=== PATIENT | male | born 1980 | race Caucasian/White ===

== ENCOUNTER 2018-04-13 16:21 | Emergency (ER) | payer OTHER, SELFPAY ==
[2018-04-13 16:25] VITALS: BP 144/86; PULSE 86; RESP 15; TEMP 36.8; O2SAT 97; BMI 30.1
--- NOTE | 2018-04-13 16:32 | DI.RAD.S_ITS ---
PROCEDURE: XR CHEST 2V INDICATIONS: trauma with pain left lower chest TECHNIQUE: 2 views of the chest were acquired. [place] [facility] [place], 15:06. FINDINGS: Surgical changes and devices: None. Lungs and pleura: No pleural effusions or pneumothorax. Lungs are clear. Mediastinum: Mediastinal contours are normal. Heart size is normal. Bones and chest wall: No suspicious bony abnormalities. Soft tissues appear unremarkable. IMPRESSION: No active cardiopulmonary disease. Dictated by: Taylor Shipman M.D. on 04/13/2018 at 16:56 Approved by: Taylor Shipman M.D. on 04/13/2018 at 16:57
--- NOTE | 2018-04-13 16:46 | PC.NURSE ---
States CP from fall and injury.
--- NOTE | 2018-04-13 17:00 | ED_ITS ---
HPI - Chest Pain General Chief Complaint: Chest Pain Stated Complaint: Fell yesterday Time Seen by Provider: 04/13/18 16:34 Source: patient Mode of arrival: ambulatory Limitations: no limitations History of Present Illness HPI narrative: 37-year-old nonsmoking male presents with a chief complaint of and anterior chest injury after falling at work yesterday. He was using 2 hands on a pipe wrench to loosen a valve when it let go in his body fell forward onto a 1 in pipe, striking it and is epigastrium. Since the fall the patient complains he has widespread left-sided chest wall pain with deep breaths and motion of his left arm. He has had no cough, hemoptysis nor nausea or vomiting. He does state that he is afraid he has indentation in his upper belly that was not there prior to his fall MD complaint: chest pain Onset (ago): day(s) Duration: intermittent Onset: during exertion Pain location: left chest Severity: moderate Severity scale (1-10): 4 Quality: aching Pain radiation: none Relieving factors: nothing Exacerbating factors: inspiration and movement Context: trauma/injury Treatments prior to arrival chest pain: none Related Data Previous Rx's Medication Instructions Recorded methocarbamol [Robaxin] 500 mg PO QID #14 tab 04/13/18 Allergies Allergy/AdvReac Type Severity Reaction Status Date / Time Sulfa (Sulfonamide Allergy Unknown Verified 04/13/18 16:25 Antibiotics) [SULFA (SULFONAMIDE ANTIBIOTICS)] Review of Systems Review of Systems All systems reviewed & are unremarkable except as noted in HPI and below Constitutional Denies chills, Denies fever(s), Denies lethargy and Denies weakness Eyes Denies change in vision, Denies eye discharge, Denies irritation and Denies loss of vision ENT Ears, Nose, Mouth, and Throat: Denies change in voice, Denies neck pain and Denies sore throat Cardiovascular Reports chest pain, Denies irregular heart rhythm, Denies lightheadedness, Denies palpitations, Denies dyspnea, Denies dyspnea on exertion and Denies orthopnea Respiratory Denies cough, Denies dyspnea, Denies dyspnea on exertion and Denies wheezing Gastrointestinal Gastrointestinal: Denies abdominal pain, Denies change in bowel habits, Denies diarrhea, Denies nausea and Denies vomiting Genitourinary Denies hematuria, Denies flank pain, Denies urinary incontinence and Denies urinary urgency Musculoskeletal Denies neck pain Integumentary/Breasts Denies pruritus, Denies erythema, Denies rash and Denies wounds Neurologic Denies confusion, Denies loss of vision and Denies weakness Psychiatric Denies anxiety, Denies confusion, Denies depression, Denies homicidal ideation and Denies suicidal ideation Endocrine Denies palpitations Hematologic/Lymphatic Denies easy bruising Allergic/Immunologic Denies wheezing REPLACED BY [facility] Social History Smoking Status: Never smoker Exam Narrative Exam Narrative: GENERAL: This is a well-nourished, well-developed patient, in mild distress. HEAD: Atraumatic. Normocephalic. No temporal or scalp tenderness. EYES: Pupils equal round and reactive. Extraocular motions intact. No scleral icterus. No injection or drainage. ENT: Nose without bleeding, purulent drainage or septal hematoma. Throat without erythema, tonsillar hypertrophy or exudate. Uvula midline. Airway patent. NECK: Trachea midline. No JVD or lymphadenopathy. Supple, nontender, no meningeal signs. CARDIOVASCULAR: Regular rate and rhythm without murmurs, gallops, or rubs. Chest pain with palpation of left lateral chest. No obvious external manifestation, no bruises, swelling or abrasions. He is a bit tender over his xiphoid. RESPIRATORY: Clear to auscultation. Breath sounds equal bilaterally. No wheezes , rales, or rhonchi. GASTROINTESTINAL: Abdomen soft, non-tender, nondistended. No hepato-splenomegaly , or palpable masses. No guarding. EXTREMITIES: No clubbing, cyanosis, or edema. No joint tenderness, effusion, or edema noted. BACK: Nontender without deformity or crepitance. No flank tenderness. NEURO: AOx3. SKIN: No rash or erythema. Initial Vital Signs Initial Vital Signs: Vital Signs Temperature 98.3 F 04/13/18 16:25 Pulse Rate 86 04/13/18 16:25 Respiratory Rate 15 04/13/18 16:25 Blood Pressure 144/86 H 04/13/18 16:25 Pulse Oximetry 97 04/13/18 16:25 Procedures Orthopedic Splinting/Casting Injury #1: Additional Comments: Left simple shoulder sling placed to minimize range of motion which seems to help the chest wall strain Course Orders Ordered: ED Orders 04/13/18 16:32 Chest [XR chest 2V] Stat Vital Signs - 8 hr 04/13/18 16:25 Temperature 98.3 F Pulse Rate 86 Respiratory Rate 15 Blood Pressure 144/86 H Pulse Oximetry 97 MDM - Chest Pain Differential Diagnosis Likely fracture of rib, pneumothorax and costochondritis Medical Records Data Attestation: I reviewed the patient's medical records. Lab Data Attestation: I reviewed the patient's lab results. Imaging Data Chest x-ray: Radiologist's impression: [address] [address] XRay Report Signed Patient: Socrates Willis MMR#: [id number] : 1980Acct:[id number] Age/Sex: 37 / MDate of Service: 04/13/18 Loc: ED Accession Number: [id number] Procedure: XR chest 2V Ordering Provider: Edison Abraham D.O. PROCEDURE: XR CHEST 2V INDICATIONS: trauma with pain left lower chest TECHNIQUE: 2 views of the chest were acquired. COMPARISON: [facility], , CHEST 2VW, 06/02/2007, 15:06. FINDINGS: Surgical changes and devices: None. Lungs and pleura: No pleural effusions or pneumothorax. Lungs are clear. Mediastinum: Mediastinal contours are normal. Heart size is normal. Bones and chest wall: No suspicious bony abnormalities. Soft tissues appear unremarkable. IMPRESSION: No active cardiopulmonary disease. Dictated by: Taylor Shipman M.D. on 04/13/2018 at 16:56 Approved by: Taylor Shipman M.D. on 04/13/2018 at 16:57 [facility] Narrative Medical decision making narrative: Patient describes landing with his body weight on a narrow pipe with a 90 degree band creating a small surface area which would in most cases leave some type of abrasion, bruising or swelling which is not noted on the patient's exam. Chest x-ray shows no pneumothorax or rib fractures. His description of the injury raises suspicion muscle strain to the intercostals and other chest wall muscles on the left side of his chest. Discharge Plan Departure Patient Disposition: Home Clinical Impression: Chest wall injury, Chest wall muscle strain Discharge Date/Time: 04/13/18 18:17 Interventions: ED Discharge Assessment Last Done: 04/13/18 17:51 Instructions: DI for Atypical Chest Pain Activity Restrictions/Additional Instructions: *You have been diagnosed with [ chest wall strain ] *What to do: *Take medications as directed *Follow up with your primary care provider in 2-3 days, call for an appointment. Let them know you were seen in the Emergency Department and that we ask that you be seen in follow up *Return to ER if you should have any new, worsening or concerning symptoms Prescriptions: New methocarbamol [Robaxin] 500 mg tablet 500 mg PO QID Qty: 14 RF: 0
[2018-04-13 17:51] VITALS: BP 129/83; PULSE 90; RESP 16; O2SAT 97
== END 2018-04-13 18:17 | disposition home or self-care (01) ==
PROVIDERS: Emergency Provider Emergency Medicine
DX: S29.9XXA Unspecified injury of thorax, initial encounter (principal); S29.011A Strain of muscle and tendon of front wall of thorax, initial encounter; W01.198A Fall on same level from slipping, tripping and stumbling with subsequent striking against other object, initial encounter; Y99.0 Civilian activity done for income or pay
CPT/HCPCS: 71046; 99282; 99283

== ENCOUNTER 2019-09-16 11:38 | Emergency (ER) | payer OTHER, SELFPAY ==
[2019-09-16 11:49] VITALS: BP 137/89; PULSE 98; RESP 18; TEMP 36.9; O2SAT 97
--- NOTE | 2019-09-16 11:54 | ED_ITS ---
HPI - Animal Bite <[facility] - Last Filed: 09/16/19 14:02> General Chief Complaint: Animal Bite Stated Complaint: lt thumb/ bite Time Seen by Provider: 09/16/19 11:44 Source: patient and family Mode of arrival: Ambulatory Limitations: no limitations History of Present Illness HPI narrative: The patient is a 39-year-old male current smoker with history of multiple fractures who presents with a chief complaint of a dog bite to his right thumb. The bite was from his own dog which is fully vaccinated as he was trying to break up a fight between 2 of his dogs. The dog that bit him is a chihuahua mix. He states that he had a tetanus within the past 2 years he has not washed it out. He states that he has full range of motion with his thumb. The patient is right-hand dominant Related Data Previous Rx's Medication Instructions Recorded methocarbamol [Robaxin] 500 mg PO QID #14 tab 04/13/18 amoxicillin-pot clavulanate 1 tab PO BID #20 tab 09/16/19 [Augmentin] Allergies Allergy/AdvReac Type Severity Reaction Status Date / Time Sulfa (Sulfonamide Allergy Unknown Verified 04/13/18 16:25 Antibiotics) [SULFA (SULFONAMIDE ANTIBIOTICS)] Review of Systems [facility] Last Filed: 09/16/19 14:02> Review of Systems Narrative: GENERAL: Denies chills, fatigue, malaise, fever, sweats. HEENT: Denies sinus pain, ear pain, sore throat, difficulty swallowing, dizziness. RESPIRATORY: Denies dyspnea, cough, wheezing, hemoptysis, sputum. CARDIOVASCULAR: Denies chest pain, palpitations, orthopnea, edema, GASTROINTESTINAL: Denies nausea, vomiting, abdominal pain, diarrhea, constipation, melena. : Denies dysuria, frequency, incontinence, hematuria, urinary retention. MUSCULOSKELETAL: See HPI SKIN: See HPI NEUROLOGIC: Denies weakness, headache, numbness, change in speech, confusion, seizures, incoordination. PSYCHIATRIC: No concerning psychosocial issues. 12 point review of systems is negative except for those stated above Patient History <[facility] - Last Filed: 09/16/19 14:02> Social History (Reviewed 04/14/18 @ 07:47 by RYAN Howard Smoking Status: Current some day smoker Smoking Status: Current some day smoker alcohol intake frequency: 0-2 drinks per day Substance Use Type: does not use Exam <BEATRIZ Thompson - Last Filed: 09/16/19 14:02> Narrative Exam Narrative: GENERAL: This is a well-nourished, well-developed patient, in no acute distress HEAD: Atraumatic. Normocephalic. No temporal or scalp tenderness. EYES: Pupils equal round and reactive. Extraocular motions intact. No scleral icterus. No injection or drainage. ENT: Nose without bleeding, purulent drainage or septal hematoma. Throat without erythema, tonsillar hypertrophy or exudate. Uvula midline. Airway patent. NECK: Trachea midline. No JVD or lymphadenopathy. Supple, nontender, no meni ngeal signs. CARDIOVASCULAR: Regular rate and rhythm RESPIRATORY: No cough. No increased respiratory effort. No accessory muscle use EXTREMITIES: See skin exam. Patient has full range of motion noted to right thumb. Able to flex and extend against resistance. Capillary refill less than 2 seconds. BACK: Nontender without deformity or crepitance. No flank tenderness. NEURO: AOx3. SKIN: Puncture wound noted at webbing of thumb of right hand, through dermis no obvious muscle or tendon involvement. Deeper tissue visible upon moving finger. Opens up copiously with motion of 1st digit of right hand additional extending 1 cm partial-thickness laceration from puncture wound. Initial Vital Signs Initial Vital Signs: Vital Signs Temperature 98.4 F 09/16/19 11:49 Pulse Rate 98 H 09/16/19 11:49 Respiratory Rate 18 09/16/19 11:49 Blood Pressure 137/89 09/16/19 11:49 Pulse Oximetry 97 09/16/19 11:49 <Daisha Kearns DO - Last Filed: 09/16/19 16:02> Initial Vital Signs Initial Vital Signs: Vital Signs Temperature 98.4 F 09/16/19 11:49 Pulse Rate 98 H 09/16/19 11:49 Respiratory Rate 18 09/16/19 11:49 Blood Pressure 137/89 09/16/19 11:49 Pulse Oximetry 97 09/16/19 11:49 Procedures <BEATRIZ Thompson - Last Filed: 09/16/19 14:02> Laceration Repair Laceration 1: Site: hand Side (If applicable): left Size (cm): 0.5 Description: irregular Depth: simple, single layer Local Anesthetic: lidocaine 1% and with bicarb Amount of anesthesia used (mL): 2 Pre-repair: wound explored, irrigated extensively and deep structures intact Skin layer closed with: nylon Size (cm): 4-0 Number of sutures: 1 Technique: simple, interrupted Course <BEATRIZ Thompson - Last Filed: 09/16/19 14:02> Orders Ordered: Discontinued Medications Lidocaine/Sodium Bicarbonate (Buffered Lidocaine 10 Ml Syr) 10 ml INJ NOW ONE Stop: 09/16/19 12:32 Last Admin: 09/16/19 13:13 Dose: 10 ml Documented by: BTONER Vital Signs Vital signs: Vital Signs - 8 hr 09/16/19 11:49 09/16/19 13:24 Temperature 98.4 F Pulse Rate 98 H 87 Respiratory Rate 18 16 Blood Pressure 137/89 148/65 H Pulse Oximetry 97 97 <Daisha Kearns DO - Last Filed: 09/16/19 16:02> Orders Ordered: Discontinued Medications Lidocaine/Sodium Bicarbonate (Buffered Lidocaine 10 Ml Syr) 10 ml INJ NOW ONE Stop: 09/16/19 12:32 Last Admin: 09/16/19 13:13 Dose: 10 ml Documented by: BTONER Vital Signs Vital signs: Vital Signs - 8 hr 09/16/19 11:49 09/16/19 13:24 Temperature 98.4 F Pulse Rate 98 H 87 Respiratory Rate 18 16 Blood Pressure 137/89 148/65 H Pulse Oximetry 97 97 MDM - Animal Bite <BEATRIZ Thompson - Last Filed: 09/16/19 14:02> MDM Narrative Medical decision making narrative: The patient is a 39-year-old male who presents with a chief complaint of a dog bite to his right thumb. The dog is vaccinated, his tetanus is up-to-date. Given the depth of 1 of the puncture wounds, as well as location on the webbing of the thumb I did place 1 stitch. Placed patient on Augmentin. He is neurovascularly intact. I discussed at length keeping the wound clean and dry, following up with primary care provider, monitoring for signs and symptoms of infection. Patient has no questions or concerns upon discharge and states understanding of return precautions as well as folow up care. Discharge Plan Departure Patient Disposition: Home Clinical Impression: Dog bite Qualifiers: Encounter type: initial encounter Qualified Code(s): W54.0XXA - Bitten by dog, initial encounter Discharge Date/Time: 09/16/19 13:24 Instructions: DI for Animal Bites, DI for Dog Bite Activity Restrictions/Additional Instructions: Thank you for trusting us with your care today. I hope your wound heals well. I sent a prescription of Augmentin to [facility]. Please take this twice a day for 10 days. Please monitor for signs of infection including redness extending up the arm, purulence drainage or other signs of infection. Please keep your wound clean and dry. You can use bacitracin or an antibacterial ointment. Please do not submerge your wound dirty water such as dishwater pool water etcetera this can increase your chance of infection Please follow-up with primary care provider Your suture can be taken out approximately 1 week Please come back to the emergency department for any acute concerns Prescriptions: New amoxicillin-pot clavulanate [Augmentin] 875-125 mg tablet 1 tab PO BID Qty: 20 RF: 0 No Action methocarbamol [Robaxin] 500 mg tablet 500 mg PO QID Qty: 14 RF: 0 Referrals: Jeff Lutz MD [Primary Care Provider] -
[2019-09-16] MEDS: LIDO 1%/SOD BICARB 8.4% (10ML) 10 ML SYRINGE INJ (13:13)
[2019-09-16 13:24] VITALS: BP 148/65; PULSE 87; RESP 16; O2SAT 97
== END 2019-09-16 13:24 | disposition home or self-care (01) ==
PROVIDERS: Emergency Provider Nurse Practitioner Family; PCP Family Medicine
DX: S61.051A Open bite of right thumb without damage to nail, initial encounter (principal); W54.0XXA Bitten by dog, initial encounter
CPT/HCPCS: 12001; 99283

== ENCOUNTER → 2021-01-06 10:37 | Outpatient (CLI) | payer OTHER, SELFPAY ==
--- NOTE | 2021-01-06 | DI.US.S_ITS ---
PROCEDURE: US SCROTUM INDICATIONS: R TESTICULAR PAIN TECHNIQUE: Real-time scanning was performed of the scrotum and testicles, with image documentation. Color and pulse Doppler interrogation was performed of both testicles. COMPARISON: CT, KIDNEY/ URETER/BLADDER, 01/09/2016, 8:38. FINDINGS: Right: Testicle is normal in size at 4.5 x 2.4 x 3.3 cm, and homogenous in echotexture. Epididymis is normal in overall size and morphology. No hydrocele or varicoceles. Overlying scrotal skin is normal in thickness. Complex mass present within the right hemiscrotum measuring 3.5 x 1.2 x 1.6 cm and no significant internal blood flow seen. Left: Testicle is normal in size at 4.5 x 2.5 x 3.0 cm, and homogeneous in echotexture. Epididymis is normal in overall size and morphology. No hydrocele or varicoceles. Overlying scrotal skin is normal in thickness. Doppler: Color and pulse Doppler demonstrate normal and symmetric arterial flow in both testicles. IMPRESSION: 1. Normal appearance of the testicles bilaterally. 2. Complex right hemiscrotal mass which may represent an evolving hematoma status post recent S ectomy. Recommend clinical correlation and short-term follow-up ultrasound in 3-4 weeks. Dictated by: Fred DARBY Interpreted: Cooper Ortiz MD on 01/06/2021 at 13:21 Transcribed by: SHELLEY on 01/06/2021 at 13:23 Approved by: Cooper Ortiz M.D. on 01/06/2021 at 14:45
== END ==
PROVIDERS: PCP Family Medicine; Referring Provider Family Medicine; Visit Provider Family Medicine
DX: N50.811 Right testicular pain (principal); N50.9 Disorder of male genital organs, unspecified; Z98.52 Vasectomy status
CPT/HCPCS: 76870

== ENCOUNTER 2021-01-11 20:18 | Observation (INO) | payer OTHER, SELFPAY ==
[2021-01-11] VITALS (8 sets, daily range): BP systolic 146–169; BP diastolic 77–108; PULSE 86–119; RESP 12–33; TEMP 36.7; O2SAT 95–99
[2021-01-11 21:02] LABS: Add Manual Diff / Slide Review NO; Basophils Absolute Auto 200 /uL (0-100); Basophils Percent Auto 1.1 % (0-2); Eosinophils Absolute Auto 200 /uL (0-450); Eosinophils Percent Auto 1.7 % (2-4); Hematocrit 46.3 % (41-53); Hemoglobin 15.7 g/dL (13.5-17.5); Lymphocytes Absolute Auto 3400 /uL (1100-4500); Lymphocytes Percent Auto 24.2 % (25-40); Mean Corpuscular Hemoglobin 28.9 PG (26-34); Monocytes Absolute Auto 1000 /uL (0-900); Monocytes Percent Auto 7.3 % (3-14); Neutrophils Absolute Auto 9300 /uL (1500-7000); Neutrophils Percent Auto 65.7 % (50-75); Platelet Count 363 X10^3/uL (150-400); Red Blood Cell Count 5.45 X10^6/uL (4.5-5.9); Red Cell Distribution Width 12.3 % (11.6-14.8); White Blood Cell Count 14.1 X10^3/uL (4.5-11.0)
[2021-01-11] MEDS: SODIUM CHLORIDE 0.9% 1,000 ML 1000 ML IV (21:02)
[2021-01-11 21:10] LABS: Alanine Aminotransferase 21 IU/L (<50); Albumin 4.2 g/dL (3.5-5.0); Albumin Globulin Ratio 1.1 (1.0-2.8); Alkaline Phosphatase 135 U/L (38-126); Aspartate Aminotransferase 22 IU/L (17-59); BUN Creatinine Ratio 23.8 (6-22); Bilirubin Total 0.6 mg/dL (0.2-1.3); Blood Urea Nitrogen 10 mg/dL (9-20); Calcium 9.6 mg/dL (8.4-10.2); Carbon Dioxide 19 mmol/L (22-32); Chloride 107 mmol/L (98-107); Estimated Glomerular Filt Rate > 60.0 mL/min (>60); Globulin 3.9 g/dL (1.7-4.1); Glucose 196 mg/dL (70-100); HEMOLYSIS < 15 (0-50); Lipase 41 U/L (23-300); Potassium 3.7 mmol/L (3.4-5.1); Sodium 139 mmol/L (137-145); Total Protein 8.1 g/dL (6.3-8.2)
[2021-01-11 21:26] LABS: Procalcitonin 0.07 ng/mL (<0.5)
--- NOTE | 2021-01-11 21:27 | ED.MALEGU ---
HPI - Male Genitourinary <DO Chinmay Howard Last Filed: 01/13/21 03:15> General Chief complaint: Urogenital-Male Stated complaint: VASECTOMY LAST WEEK SWELLING Time Seen by Provider: 01/11/21 20:38 Source: patient Mode of arrival: Ambulatory Limitations: no limitations History of Present Illness HPI Narrative: 40-year-old male smoker presents with his in the chief complaint of pain and swelling in his right testicle over the past week or 2. He had a vasectomy in his primary care office on December 19 and started swelling about a week later. He started having some increasing pain and swelling and was started on cefuroxime on Tuesday. He presents today under the circumstances as mention. He has no fever or chills. He has had no chest pain or shortness of breath. He states he feels well and just complains of pain and swelling. He has no trouble with urinating or bowel movements. Related Data Previous Rx's Medication Instructions Recorded ciprofloxacin HCl 500 mg tablet 500 mg PO Q12H #20 tab 01/12/21 oxycodone 5 mg tablet 5 mg PO Q4H PRN #20 tab 01/12/21 Allergies Allergy/AdvReac Type Severity Reaction Status Date / Time Sulfa (Sulfonamide Allergy Unknown Unknown - Verified 01/12/21 12:24 Antibiotics) was in [SULFA (SULFONAMIDE [facility])] Review of Systems <DO Chinmay Howard Last Filed: 01/13/21 03:15> Review of Systems Narrative: GENERAL: Denies chills, fatigue, malaise, fever, sweats. HEENT: Denies sinus pain, ear pain, sore throat, difficulty swallowing, dizziness. RESPIRATORY: Denies dyspnea, cough, wheezing, hemoptysis, sputum. CARDIOVASCULAR: Denies chest pain, palpitations, orthopnea, edema, GASTROINTESTINAL: Denies nausea, vomiting, abdominal pain, diarrhea, constipation, melena. : See HPI MUSCULOSKELETAL: denies weakness, joint pain, or bony pain SKIN: Denies rash, skin lesions, or other NEUROLOGIC: Denies weakness, headache, numbness, change in speech, confusion, seizures, incoordination. PSYCHIATRIC: No concerning psychosocial issues. 12 point review of systems is negative except for those stated above Patient History <DO Chinmay Howard Last Filed: 01/13/21 03:15> Surgical History (Updated 01/12/21 @ 12:38 by Karen Grimes RN) H/O foot surgery (~2016) H/O vasectomy Social History household members: spouse and children Smoking Status: Current some day smoker alcohol intake: current Smoking Status: Current some day smoker alcohol intake frequency: 0-2 drinks per day Substance Use Type: does not use Exam <Edison Abraham DO - Last Filed: 01/13/21 03:15> Narrative Exam Narrative: GEN: AOx3 and in mild distress EYES: Pupils are equal, round, and reactive to light and accommodation. Extraoccular muscles are intact bilaterally. There is no subconjunctival hemorrhage or exudate. CHEST: Lungs are clear to auscultation bilaterally and free of wheezes, rales, or rhonchi. Heart rate is regular rhythm, there are no murmurs, clicks, rubs, or gallops. There is no chest wall tenderness. ABD: Abdomen is soft and nontender. There is no guarding or rebound. Bowel sounds are normal in all 4 quadrants. There is no mass or organomegaly. : Large firm, erythematous swelling of R testicle. No obvious fluctuance or induration EXT: Full painless ROM of all extremities with no loss of sensation or strength. SKIN: Warm, pink, and dry. No erythema or rash Initial Vital Signs Initial Vital Signs: Vital Signs Temperature 98.1 F 01/11/21 20:34 Pulse Rate 119 H 01/11/21 20:34 Respiratory Rate 24 01/11/21 20:34 Blood Pressure 169/108 H 01/11/21 20:34 Pulse Oximetry 99 01/11/21 20:34 <Daisha Kearns DO - Last Filed: 01/12/21 12:06> Initial Vital Signs Initial Vital Signs: Vital Signs Temperature 98.1 F 01/11/21 20:34 Pulse Rate 119 H 01/11/21 20:34 Respiratory Rate 24 01/11/21 20:34 Blood Pressure 169/108 H 01/11/21 20:34 Pulse Oximetry 99 01/11/21 20:34 Course <Edison Abraham DO - Last Filed: 01/13/21 03:15> Orders Ordered: Discontinued Medications Acetaminophen (Acetaminophen 325 Mg Tablet) 325 mg PO PACUNOW PRN PRN Reason: Pain, Mild (1-3) Last Admin: 01/12/21 16:44 Dose: 325 mg Documented by: SPARKLE Bupivacaine Liposome (Bupivacaine Liposome 266 Mg/20 Ml Vial) 266 mg INJ INTRA-OP ONE Stop: 01/12/21 12:16 Last Admin: 01/12/21 16:05 Dose: 266 mg Documented by: PA Sodium Chloride 1,000 ml/ (Gentamicin Sulfate 80 mg) 0 ml IRR NOW ONE Stop: 01/12/21 16:09 Last Admin: 01/12/21 16:08 Dose: 500 ml Documented by: PA Fentanyl (Fentanyl 100 Mcg/2 Ml Inj) 0 mcg IV Q5M PRN PRN Reason: Pain, Moderate (4-6) Hydromorphone HCl (Hydromorphone 0.5 Mg Inj) 0.5 mg IV NOW ONE Stop: 01/11/21 21:33 Last Admin: 01/11/21 21:44 Dose: 0.5 mg Documented by: RONAN Hydromorphone HCl (Hydromorphone 0.5 Mg Inj) 0.5 mg IV NOW ONE Stop: 01/11/21 22:33 Last Admin: 01/11/21 22:43 Dose: 0.5 mg Documented by: RONAN Hydromorphone HCl (Hydromorphone 0.5 Mg Inj) 0.25 mg IV NOW ONE Stop: 01/12/21 01:54 Last Admin: 01/12/21 02:10 Dose: 0.25 mg Documented by: ANGELLA Hydromorphone HCl (Hydromorphone 0.5 Mg Inj) 0.5 mg IV NOW ONE Stop: 01/12/21 08:17 Last Admin: 01/12/21 09:01 Dose: 0.5 mg Documented by: RACHAEL Hydromorphone HCl (Hydromorphone 0.5 Mg Inj) 0.5 mg IV Q4H PRN PRN Reason: Pain, Moderate (4-6) Sodium Chloride (Normal Saline 0.9%) 1,000 mls @ 1,000 mls/hr IV BOLUS ONE Stop: 01/11/21 21:37 Last Infusion: 01/11/21 22:20 Dose: 0 mls/hr Documented by: Admin: 01/11/21 21:02 Dose: 1,000 mls/hr Documented by: JULES Ceftriaxone Sodium 2,000 mg/ (Sodium Chloride) 100 mls @ 200 mls/hr IV NOW ONE Stop: 01/12/21 01:16 Last Infusion: 01/12/21 02:11 Dose: 0 mls/hr Documented by: Admin: 01/12/21 01:37 Dose: 200 mls/hr Documented by: ANGELLA Lactated Ringer's (Lactated Ringers) 1,000 mls @ 125 mls/hr IV CONT KOLE Last Infusion: 01/12/21 17:19 Dose: 0 mls/hr Documented by: Admin: 01/12/21 15:27 Dose: 42 mls/hr Documented by: Infusion: 01/12/21 15:26 Dose: 0 mls/hr Documented by: Admin: 01/12/21 12:34 Dose: 125 mls/hr Documented by: JACQUES Ampicillin Sodium/Sulbactam (Sodium 3 gm/ Sodium Chloride) 100 mls @ 100 mls/hr IV NOW ONE Stop: 01/12/21 12:16 Last Admin: 01/12/21 16:06 Dose: 100 mls/hr Documented by: SARI Gentamicin Sulfate 240 mg/ (Sodium Chloride) 106 mls @ 106 mls/hr IV NOW ONE Stop: 01/12/21 12:16 Last Infusion: 01/12/21 16:06 Dose: 0 mls/hr Documented by: Admin: 01/12/21 15:53 Dose: 106 mls/hr Documented by: SARI Lactated Ringer's (Lactated Ringers) 500 mls @ 25 mls/hr IV CONT KOLE Ketorolac Tromethamine (Ketorolac 30 Mg/Ml Vial) 15 mg IV NOW ONE Stop: 01/12/21 10:19 Last Admin: 01/12/21 10:23 Dose: 15 mg Documented by: RONAN Ondansetron HCl (Ondansetron 4 Mg/2 Ml Inj) 4 mg IV NOW ONE Stop: 01/11/21 21:33 Last Admin: 01/11/21 21:44 Dose: 4 mg Documented by: RONAN Ondansetron HCl (Ondansetron 4 Mg/2 Ml Inj) 4 mg IV NOW ONE Stop: 01/12/21 10:19 Last Admin: 01/12/21 10:24 Dose: 4 mg Documented by: RONAN Ondansetron HCl (Ondansetron 4 Mg/2 Ml Inj) 4 mg IV Q6HR PRN PRN Reason: Nausea And Vomiting Ondansetron HCl (Ondansetron 4 Mg/2 Ml Inj) 4 mg IV NOW PRN PRN Reason: Nausea And Vomiting Last Admin: 01/12/21 17:27 Dose: 4 mg Documented by: TIMMY Oxycodone HCl (Oxycodone Ir 5 Mg Tablet) 5 mg PO PACUNOW PRN PRN Reason: Mild or moderate pain Last Admin: 01/12/21 16:43 Dose: 5 mg Documented by: SPARKLE Consultations Consultation #1: Discussion with Dr. Horta (on-call for Dr. Lutz) to discuss admission with urologic consultation (they are not on-call until tomorrow morning) or keeping in the ED. he would prefer we keep the patient in the emergency department until they come on this morning at 8:00 a.m.. Vital Signs Vital signs: Vital Signs - 8 hr 01/12/21 04:30 01/12/21 05:00 01/12/21 05:30 Pulse Rate 92 H 92 H 94 H Respiratory Rate 12 12 11 L Blood Pressure 142/92 H 131/85 144/88 H Pulse Oximetry 96 96 96 01/12/21 06:00 01/12/21 06:30 01/12/21 07:00 Pulse Rate 96 H 94 H 98 H Respiratory Rate 13 12 13 Blood Pressure 144/88 H 148/92 H 144/91 H Pulse Oximetry 96 96 97 01/12/21 07:30 01/12/21 09:04 01/12/21 09:30 Pulse Rate 102 H 105 H 109 H Respiratory Rate 16 Blood Pressure 149/93 H Pulse Oximetry 96 97 95 01/12/21 10:00 01/12/21 10:11 Pulse Rate 113 H 113 H Respiratory Rate 16 Blood Pressure 143/90 H Pulse Oximetry 97 97 <Daisha Kearns DO - Last Filed: 01/12/21 12:06> Orders Ordered: Discontinued Medications Acetaminophen (Acetaminophen 325 Mg Tablet) 325 mg PO PACUNOW PRN PRN Reason: Pain, Mild (1-3) Last Admin: 01/12/21 16:44 Dose: 325 mg Documented by: SPARKLE Bupivacaine Liposome (Bupivacaine Liposome 266 Mg/20 Ml Vial) 266 mg INJ INTRA-OP ONE Stop: 01/12/21 12:16 Last Admin: 01/12/21 16:05 Dose: 266 mg Documented by: PA Sodium Chloride 1,000 ml/ (Gentamicin Sulfate 80 mg) 0 ml IRR NOW ONE Stop: 01/12/21 16:09 Last Admin: 01/12/21 16:08 Dose: 500 ml Documented by: PA Fentanyl (Fentanyl 100 Mcg/2 Ml Inj) 0 mcg IV Q5M PRN PRN Reason: Pain, Moderate (4-6) Hydromorphone HCl (Hydromorphone 0.5 Mg Inj) 0.5 mg IV NOW ONE Stop: 01/11/21 21:33 Last Admin: 01/11/21 21:44 Dose: 0.5 mg Documented by: RONAN Hydromorphone HCl (Hydromorphone 0.5 Mg Inj) 0.5 mg IV NOW ONE Stop: 01/11/21 22:33 Last Admin: 01/11/21 22:43 Dose: 0.5 mg Documented by: RONAN Hydromorphone HCl (Hydromorphone 0.5 Mg Inj) 0.25 mg IV NOW ONE Stop: 01/12/21 01:54 Last Admin: 01/12/21 02:10 Dose: 0.25 mg Documented by: ANGELLA Hydromorphone HCl (Hydromorphone 0.5 Mg Inj) 0.5 mg IV NOW ONE Stop: 01/12/21 08:17 Last Admin: 01/12/21 09:01 Dose: 0.5 mg Documented by: RACHAEL Hydromorphone HCl (Hydromorphone 0.5 Mg Inj) 0.5 mg IV Q4H PRN PRN Reason: Pain, Moderate (4-6) Sodium Chloride (Normal Saline 0.9%) 1,000 mls @ 1,000 mls/hr IV BOLUS ONE Stop: 01/11/21 21:37 Last Infusion: 01/11/21 22:20 Dose: 0 mls/hr Documented by: Admin: 01/11/21 21:02 Dose: 1,000 mls/hr Documented by: JULES Ceftriaxone Sodium 2,000 mg/ (Sodium Chloride) 100 mls @ 200 mls/hr IV NOW ONE Stop: 01/12/21 01:16 Last Infusion: 01/12/21 02:11 Dose: 0 mls/hr Documented by: Admin: 01/12/21 01:37 Dose: 200 mls/hr Documented by: ANGELLA Lactated Ringer's (Lactated Ringers) 1,000 mls @ 125 mls/hr IV CONT KOLE Last Infusion: 01/12/21 17:19 Dose: 0 mls/hr Documented by: Admin: 01/12/21 15:27 Dose: 42 mls/hr Documented by: Infusion: 01/12/21 15:26 Dose: 0 mls/hr Documented by: Admin: 01/12/21 12:34 Dose: 125 mls/hr Documented by: JACQUES Ampicillin Sodium/Sulbactam (Sodium 3 gm/ Sodium Chloride) 100 mls @ 100 mls/hr IV NOW ONE Stop: 01/12/21 12:16 Last Admin: 01/12/21 16:06 Dose: 100 mls/hr Documented by: SARI Gentamicin Sulfate 240 mg/ (Sodium Chloride) 106 mls @ 106 mls/hr IV NOW ONE Stop: 01/12/21 12:16 Last Infusion: 01/12/21 16:06 Dose: 0 mls/hr Documented by: Admin: 01/12/21 15:53 Dose: 106 mls/hr Documented by: SARI Lactated Ringer's (Lactated Ringers) 500 mls @ 25 mls/hr IV CONT KOLE Ketorolac Tromethamine (Ketorolac 30 Mg/Ml Vial) 15 mg IV NOW ONE Stop: 01/12/21 10:19 Last Admin: 01/12/21 10:23 Dose: 15 mg Documented by: RONAN Ondansetron HCl (Ondansetron 4 Mg/2 Ml Inj) 4 mg IV NOW ONE Stop: 01/11/21 21:33 Last Admin: 01/11/21 21:44 Dose: 4 mg Documented by: RONAN Ondansetron HCl (Ondansetron 4 Mg/2 Ml Inj) 4 mg IV NOW ONE Stop: 01/12/21 10:19 Last Admin: 01/12/21 10:24 Dose: 4 mg Documented by: RONAN Ondansetron HCl (Ondansetron 4 Mg/2 Ml Inj) 4 mg IV Q6HR PRN PRN Reason: Nausea And Vomiting Ondansetron HCl (Ondansetron 4 Mg/2 Ml Inj) 4 mg IV NOW PRN PRN Reason: Nausea And Vomiting Last Admin: 01/12/21 17:27 Dose: 4 mg Documented by: TIMMY Oxycodone HCl (Oxycodone Ir 5 Mg Tablet) 5 mg PO PACUNOW PRN PRN Reason: Mild or moderate pain Last Admin: 01/12/21 16:43 Dose: 5 mg Documented by: SPARKLE Consultations Consultation #2: Dr. Mann, saw patient here in the department. Plan for OR today. Exact time is unknown. Vital Signs Vital signs: Vital Signs - 8 hr 01/12/21 04:30 01/12/21 05:00 01/12/21 05:30 Pulse Rate 92 H 92 H 94 H Respiratory Rate 12 12 11 L Blood Pressure 142/92 H 131/85 144/88 H Pulse Oximetry 96 96 96 01/12/21 06:00 01/12/21 06:30 01/12/21 07:00 Pulse Rate 96 H 94 H 98 H Respiratory Rate 13 12 13 Blood Pressure 144/88 H 148/92 H 144/91 H Pulse Oximetry 96 96 97 01/12/21 07:30 01/12/21 09:04 01/12/21 09:30 Pulse Rate 102 H 105 H 109 H Respiratory Rate 16 Blood Pressure 149/93 H Pulse Oximetry 96 97 95 01/12/21 10:00 01/12/21 10:11 Pulse Rate 113 H 113 H Respiratory Rate 16 Blood Pressure 143/90 H Pulse Oximetry 97 97 MDM - Male Genitourinary <Edison Abraham DO - Last Filed: 01/13/21 03:15> Lab Data Result diagrams: 01/11/21 20:50 01/11/21 20:50 Labs: Lab Results 01/11/21 01/11/21 01/11/21 Range/Units 08:50 20:50 20:50 WBC 14.1 H (4.5-11.0) X10^3/uL RBC 5.45 (4.5-5.9) X10^6/uL Hgb 15.7 (13.5-17.5) g/dL Hct 46.3 (41-53) % MCV 85.0 (80-100) fL MCH 28.9 (26-34) PG MCHC 34.0 (30-36) % RDW 12.3 (11.6-14.8) % Plt Count 363 (150-400) X10^3/uL Neut % (Auto) 65.7 (50-75) % Lymph % (Auto) 24.2 L (25-40) % Morris % (Auto) 7.3 (3-14) % Eos % (Auto) 1.7 L (2-4) % Baso % (Auto) 1.1 (0-2) % Neut # (Auto) 9300 H (6949-0373) /uL Lymph # (Auto) 3400 (3658-2413) /uL Morris # (Auto) 1000 H (0-900) /uL Eos # (Auto) 200 (0-450) /uL Baso # (Auto) 200 H (0-100) /uL Sodium 139 (137-145) mmol/L Potassium 3.7 (3.4-5.1) mmol/L Chloride 107 (98-107) mmol/L Carbon Dioxide 19 L (22-32) mmol/L BUN 10 (9-20) mg/dL Creatinine 0.42 L (0.66-1.25) mg/dL Estimated GFR > 60.0 (>60) mL/min BUN/Creatinine Ratio 23.8 H (6-22) Glucose 196 H (70-100) mg/dL Lactate (0.7-2.1) mmol/L Calcium 9.6 (8.4-10.2) mg/dL Total Bilirubin 0.6 (0.2-1.3) mg/dL AST 22 (17-59) IU/L ALT 21 (<50) IU/L Alkaline Phosphatase 135 H (38-126) U/L Total Protein 8.1 (6.3-8.2) g/dL Albumin 4.2 (3.5-5.0) g/dL Globulin 3.9 (1.7-4.1) g/dL Albumin/Globulin Ratio 1.1 (1.0-2.8) Lipase 41 (23-300) U/L Procalcitonin 0.07 (<0.5) ng/mL Urine Color Urine Appearance Urine pH (4.5-8.0) Ur Specific [place] (1.000-1.035) Urine Protein (Negative) Urine Glucose (UA) (Negative) g/dL Urine Ketones (NEGATIVE) Urine Occult Blood (Negative) Urine Nitrate (Negative) Urine Bilirubin (NEGATIVE) Urine Urobilinogen (0.2) E.U./dL Ur Leukocyte Esterase (NEGATIVE) Urine RBC (0-5/HPF) Urine WBC (0-5/HPF) Urine Bacteria (None) Ur Culture Indicated? SARS-CoV-2 (PCR) Negative (Negative) 01/11/21 01/12/21 Range/Units 20:50 08:23 WBC (4.5-11.0) X10^3/uL RBC (4.5-5.9) X10^6/uL Hgb (13.5-17.5) g/dL Hct (41-53) % MCV (80-100) fL MCH (26-34) PG MCHC (30-36) % RDW (11.6-14.8) % Plt Count (150-400) X10^3/uL Neut % (Auto) (50-75) % Lymph % (Auto) (25-40) % Morris % (Auto) (3-14) % Eos % (Auto) (2-4) % Baso % (Auto) (0-2) % Neut # (Auto) (8583-8821) /uL Lymph # (Auto) (0454-7082) /uL Morris # (Auto) (0-900) /uL Eos # (Auto) (0-450) /uL Baso # (Auto) (0-100) /uL Sodium (137-145) mmol/L Potassium (3.4-5.1) mmol/L Chloride (98-107) mmol/L Carbon Dioxide (22-32) mmol/L BUN (9-20) mg/dL Creatinine (0.66-1.25) mg/dL Estimated GFR (>60) mL/min BUN/Creatinine Ratio (6-22) Glucose (70-100) mg/dL Lactate 1.0 (0.7-2.1) mmol/L Calcium (8.4-10.2) mg/dL Total Bilirubin (0.2-1.3) mg/dL AST (17-59) IU/L ALT (<50) IU/L Alkaline Phosphatase (38-126) U/L Total Protein (6.3-8.2) g/dL Albumin (3.5-5.0) g/dL Globulin (1.7-4.1) g/dL Albumin/Globulin Ratio (1.0-2.8) Lipase (23-300) U/L Procalcitonin (<0.5) ng/mL Urine Color Yellow Urine Appearance Clear Urine pH 5.5 (4.5-8.0) Ur Specific [place] 1.025 (1.000-1.035) Urine Protein 1+ H (Negative) Urine Glucose (UA) 1+ H (Negative) g/dL Urine Ketones 3+ H (NEGATIVE) Urine Occult Blood 1+ H (Negative) Urine Nitrate Negative (Negative) Urine Bilirubin Negative (NEGATIVE) Urine Urobilinogen 0.2 (0.2) E.U./dL Ur Leukocyte Esterase Negative (NEGATIVE) Urine RBC 5-10/hpf H (0-5/HPF) Urine WBC None seen (0-5/HPF) Urine Bacteria None seen (None) Ur Culture Indicated? Cult not indicated SARS-CoV-2 (PCR) (Negative) Imaging Data US Scrotum: Radiologist's Impression: [address] [id number] ReportSigned Patient: Socrates Willis [facility]#: [id number]: 1980Acct:[id number]/Sex: 40 / MDate of Service: 01/11/21Loc: EDAccession Number: [id number] Procedure: US scrotum Ordering Provider: Edison Abraham D.O. PROCEDURE: US SCROTUM INDICATIONS: PAIN, EDEMA POST VASECTOMY 12-19-20 TECHNIQUE: Real-time scanning was performed of the scrotum and testicles, with image documentation. Color and pulse Doppler interrogation was performed of both testicles. COMPARISON: [facility], US, US SCROTUM, 01/06/2021, 10:38. FINDINGS: Right: Testicle is normal in size at 4.2 x 2.9 x 3.2 cm, and homogenous in echotexture. Epididymis is normal in overall size and morphology. No hydrocele or varicoceles. There is thickening of the wall of the scrotum. There is an irregular shaped hypoechoic complex mass in the right superior hemiscrotum measuring 5.2 x 4.2 x 6.7 cm, with internal vascularity. On the previous study it measured 3.5 x 1.2 x 1.6 cm. It is suspicious for enlarging hematoma versus phlegmon versus abscess. Left: Testicle is normal in size at 4.6 x 2.2 x 3.0 cm, and homogeneous in echotexture. Epididymis is normal in overall size and morphology. No hydrocele or varicoceles. Overlying scrotal skin is normal in thickness. Doppler: Color and pulse Doppler demonstrate normal and symmetric arterial flow in both testicles. IMPRESSION: 1. Normal-sized testicles with no evidence of cystic ill or mass or testicular torsion. There is normal flow to both testicles. 2. Interval increase in the size of a complex mass of the right hemiscrotum, possibly representing increase in the size of a hematoma versus phlegmon versus abscess. Dictated by: Robbin Lin M.D. on 01/12/2021 at 0:40 Approved by: Robbin Lin M.D. on 01/12/2021 at 0:45 <Daisha Kearns, - Last Filed: 01/12/21 12:06> Lab Data Labs: Lab Results 01/11/21 01/11/21 01/11/21 Range/Units 08:50 20:50 20:50 WBC 14.1 H (4.5-11.0) X10^3/uL RBC 5.45 (4.5-5.9) X10^6/uL Hgb 15.7 (13.5-17.5) g/dL Hct 46.3 (41-53) % MCV 85.0 (80-100) fL MCH 28.9 (26-34) PG MCHC 34.0 (30-36) % RDW 12.3 (11.6-14.8) % Plt Count 363 (150-400) X10^3/uL Neut % (Auto) 65.7 (50-75) % Lymph % (Auto) 24.2 L (25-40) % Morris % (Auto) 7.3 (3-14) % Eos % (Auto) 1.7 L (2-4) % Baso % (Auto) 1.1 (0-2) % Neut # (Auto) 9300 H (5840-0973) /uL Lymph # (Auto) 3400 (7091-9776) /uL Morris # (Auto) 1000 H (0-900) /uL Eos # (Auto) 200 (0-450) /uL Baso # (Auto) 200 H (0-100) /uL Sodium 139 (137-145) mmol/L Potassium 3.7 (3.4-5.1) mmol/L Chloride 107 (98-107) mmol/L Carbon Dioxide 19 L (22-32) mmol/L BUN 10 (9-20) mg/dL Creatinine 0.42 L (0.66-1.25) mg/dL Estimated GFR > 60.0 (>60) mL/min BUN/Creatinine Ratio 23.8 H (6-22) Glucose 196 H (70-100) mg/dL Lactate (0.7-2.1) mmol/L Calcium 9.6 (8.4-10.2) mg/dL Total Bilirubin 0.6 (0.2-1.3) mg/dL AST 22 (17-59) IU/L ALT 21 (<50) IU/L Alkaline Phosphatase 135 H (38-126) U/L Total Protein 8.1 (6.3-8.2) g/dL Albumin 4.2 (3.5-5.0) g/dL Globulin 3.9 (1.7-4.1) g/dL Albumin/Globulin Ratio 1.1 (1.0-2.8) Lipase 41 (23-300) U/L Procalcitonin 0.07 (<0.5) ng/mL Urine Color Urine Appearance Urine pH (4.5-8.0) Ur Specific [place] (1.000-1.035) Urine Protein (Negative) Urine Glucose (UA) (Negative) g/dL Urine Ketones (NEGATIVE) Urine Occult Blood (Negative) Urine Nitrate (Negative) Urine Bilirubin (NEGATIVE) Urine Urobilinogen (0.2) E.U./dL Ur Leukocyte Esterase (NEGATIVE) Urine RBC (0-5/HPF) Urine WBC (0-5/HPF) Urine Bacteria (None) Ur Culture Indicated? SARS-CoV-2 (PCR) Negative (Negative) 01/11/21 01/12/21 Range/Units 20:50 08:23 WBC (4.5-11.0) X10^3/uL RBC (4.5-5.9) X10^6/uL Hgb (13.5-17.5) g/dL Hct (41-53) % MCV (80-100) fL MCH (26-34) PG MCHC (30-36) % RDW (11.6-14.8) % Plt Count (150-400) X10^3/uL Neut % (Auto) (50-75) % Lymph % (Auto) (25-40) % Morris % (Auto) (3-14) % Eos % (Auto) (2-4) % Baso % (Auto) (0-2) % Neut # (Auto) (7836-8656) /uL Lymph # (Auto) (5258-3603) /uL Morris # (Auto) (0-900) /uL Eos # (Auto) (0-450) /uL Baso # (Auto) (0-100) /uL Sodium (137-145) mmol/L Potassium (3.4-5.1) mmol/L Chloride (98-107) mmol/L Carbon Dioxide (22-32) mmol/L BUN (9-20) mg/dL Creatinine (0.66-1.25) mg/dL Estimated GFR (>60) mL/min BUN/Creatinine Ratio (6-22) Glucose (70-100) mg/dL Lactate 1.0 (0.7-2.1) mmol/L Calcium (8.4-10.2) mg/dL Total Bilirubin (0.2-1.3) mg/dL AST (17-59) IU/L ALT (<50) IU/L Alkaline Phosphatase (38-126) U/L Total Protein (6.3-8.2) g/dL Albumin (3.5-5.0) g/dL Globulin (1.7-4.1) g/dL Albumin/Globulin Ratio (1.0-2.8) Lipase (23-300) U/L Procalcitonin (<0.5) ng/mL Urine Color Yellow Urine Appearance Clear Urine pH 5.5 (4.5-8.0) Ur Specific [place] 1.025 (1.000-1.035) Urine Protein 1+ H (Negative) Urine Glucose (UA) 1+ H (Negative) g/dL Urine Ketones 3+ H (NEGATIVE) Urine Occult Blood 1+ H (Negative) Urine Nitrate Negative (Negative) Urine Bilirubin Negative (NEGATIVE) Urine Urobilinogen 0.2 (0.2) E.U./dL Ur Leukocyte Esterase Negative (NEGATIVE) Urine RBC 5-10/hpf H (0-5/HPF) Urine WBC None seen (0-5/HPF) Urine Bacteria None seen (None) Ur Culture Indicated? Cult not indicated SARS-CoV-2 (PCR) (Negative) MDM Narrative Medical decision making narrative: This is a 40-year-old male who comes with concern for infection in his right testicle. Patient had a vasectomy on 12/19/2020, patient had increasing swelling had an ultrasound outpatient with his primary care physician and was started on oral antibiotics after discussion with Urology. Patient has continued to have worsening symptoms. He has been afebrile but was tachycardic overnight with a white count of 14, patient's exam seems consistent with infection and he has had a growing area of potential abscess or phlegmon and hematoma seems less likely on his ultrasound imaging overnight. Patient was given antibiotics overnight. Blood cultures were obtained, procalcitonin is negative. Patient's heart rate was improving overnight and lactate was not obtained. Patient states his pain is relatively well controlled but does still have some headache his last dose of pain medication was quite awhile ago and was given additional dose here in the department. I spoke with both his primary care provider who performed the vasectomy as well as Urology. Dr. Mann is on for Urology will come see patient here in the emergency department. Patient's COVID swab to continue to be kept NPO in anticipation of OR today. Discharge Plan Departure Patient Disposition: Admitted to Surgery Clinical Impression: Scrotum, abscess Admit Date/Time: 01/12/21 10:17 Admit Provider: Doug Mann
--- NOTE | 2021-01-11 21:32 | DI.US.S_ITS ---
PROCEDURE: US SCROTUM INDICATIONS: PAIN, EDEMA POST VASECTOMY 12-19-20 TECHNIQUE: Real-time scanning was performed of the scrotum and testicles, with image documentation. Color and pulse Doppler interrogation was performed of both testicles. COMPARISON: [facility], , US SCROTUM, 01/06/2021, 10:38. FINDINGS: Right: Testicle is normal in size at 4.2 x 2.9 x 3.2 cm, and homogenous in echotexture. Epididymis is normal in overall size and morphology. No hydrocele or varicoceles. There is thickening of the wall of the scrotum. There is an irregular shaped hypoechoic complex mass in the right superior hemiscrotum measuring 5.2 x 4.2 x 6.7 cm, with internal vascularity. On the previous study it measured 3.5 x 1.2 x 1.6 cm. It is suspicious for enlarging hematoma versus phlegmon versus abscess. Left: Testicle is normal in size at 4.6 x 2.2 x 3.0 cm, and homogeneous in echotexture. Epididymis is normal in overall size and morphology. No hydrocele or varicoceles. Overlying scrotal skin is normal in thickness. Doppler: Color and pulse Doppler demonstrate normal and symmetric arterial flow in both testicles. IMPRESSION: 1. Normal-sized testicles with no evidence of cystic ill or mass or testicular torsion. There is normal flow to both testicles. 2. Interval increase in the size of a complex mass of the right hemiscrotum, possibly representing increase in the size of a hematoma versus phlegmon versus abscess. Dictated by: Robbin Lin M.D. on 01/12/2021 at 0:40 Approved by: Robbin Lin M.D. on 01/12/2021 at 0:45
[2021-01-11] MEDS: ONDANSETRON 4 MG/2 ML INJ IV (21:44)
[2021-01-11] MEDS: HYDROMORPHONE 0.5 MG INJ IV ×2 (21:44→22:43)
[2021-01-12] VITALS (30 sets, daily range): BP systolic 108–151; BP diastolic 74–97; PULSE 90–121; RESP 11–18; TEMP 36.3–36.6; O2SAT 95–98
[2021-01-12] MEDS: cefTRIAXone 2,000 MG in SODIUM CHLORIDE 0.9% 100 ML 200 ML IV (01:37)
[2021-01-12] MEDS: HYDROMORPHONE 0.5 MG INJ 0.25 MG IV (02:10)
--- NOTE | 2021-01-12 02:16 | PC.NURSE ---
Pt reported scrotal pain 11/20, requested 0.5mg dilaudid for pain management instead of the ordered 0.25mg. Dr Abraham notified, verbal order received for 0.5mg dilaudid IV. Pt medicated, reported good pain relief.
[2021-01-12] MEDS: HYDROMORPHONE 0.5 MG INJ IV (09:01)
[2021-01-12 09:11] LABS: COVID19 -Nasal RAPID Negative (Negative)
--- NOTE | 2021-01-12 10:15 | P.CONS_ITS ---
History of Present Illness Consult details Date Patient Seen: 01/12/21 Time Patient Seen: 10:15 Chief complaint: VASECTOMY LAST WEEK SWELLING Reason for consult: Right scrotal abscess Requesting provider: Daisha Kearns Narrative: The patient is a 40-year-old white male that underwent uncomplicated vasectomy in early December by another provider. About 1 week postprocedure he presented with complaints of right scrotal content pain and some swelling. He presented to his primary care provider and a scrotal ultrasound on 01/06/2021 demonstrated a 3.5 x 1.2 x 1.6 superior hemiscrotal mixed echogenicity mass. At that time he had no clinical evidence of infection. Verbal consultation with me led to recommendation for supportive measures and add Cefdinir. He was prescribed amoxicillin. His situation continued to deteriorate any presented to the [facility] ED on 01/11/2021. Repeat scrotal ultrasound now de monstrated a 5.2 x 4.2 x 6.7 right superior scrotal mass with increased vascularity. WBC was 14.2 without left shift at presentation. Meds Home Medications and Allergies Home Medications Medication Instructions Recorded Confirmed Type methocarbamol 500 mg tablet 500 mg PO QID #14 tab 04/13/18 04/13/18 Rx (Robaxin) amoxicillin 875 mg-potassium 1 tab PO BID #20 tab 09/16/19 Rx clavulanate 125 mg tablet (Augmentin) Allergies Allergy/AdvReac Type Severity Reaction Status Date / Time Sulfa (Sulfonamide Allergy Unknown Verified 01/11/21 20:38 Antibiotics) [SULFA (SULFONAMIDE ANTIBIOTICS)] Review of Systems Review of Systems ROS: Yes All systems reviewed with the patient and are negative except as otherwise documented Exam Vital Signs (past 8 hours): - 01/12/21 02:30 01/12/21 03:00 01/12/21 03:30 Pulse Rate 95 H 90 91 H Respiratory Rate 11 L 12 11 L Blood Pressure 128/78 137/81 135/84 Pulse Oximetry 95 95 96 01/12/21 04:00 01/12/21 04:30 01/12/21 05:00 Pulse Rate 96 H 92 H 92 H Respiratory Rate 12 12 12 Blood Pressure 132/87 142/92 H 131/85 Pulse Oximetry 97 96 96 01/12/21 05:30 01/12/21 06:00 01/12/21 06:30 Pulse Rate 94 H 96 H 94 H Respiratory Rate 11 L 13 12 Blood Pressure 144/88 H 144/88 H 148/92 H Pulse Oximetry 96 96 96 01/12/21 07:00 01/12/21 07:30 Pulse Rate 98 H 102 H Respiratory Rate 13 16 Blood Pressure 144/91 H 149/93 H Pulse Oximetry 97 96 Oxygen Delivery Method Room Air Narrative Exam Narrative: He is a well-developed and well-nourished middle-aged male lying comfortably in bed at the time of visit. Head/neck-sclera are clear pupils are round and equal bilaterally. Chest-equal, clear, unlabored expansion bilaterally. Heart-normal sinus rhythm. No abnormal heart tones appreciated. Abdomen-bowel tones are normal and active. No tenderness or distention. Genitalia-normal adult circumcised male phallus. Meatus is patent and orthotopic. Left hemiscrotum is unremarkable. Left testis is descended without tenderness, fluid collection or mass. The right hemiscrotum is erythematous and there is a raised, ballotable, and tender area approximately 3 cm in diameter consistent with soft tissue abscess. Objective Labs Result Diagrams: 01/11/21 20:50 01/11/21 20:50 Labs: Laboratory Results - last 24 hr 01/11/21 01/11/21 01/11/21 08:50 20:50 20:50 WBC 14.1 H RBC 5.45 Hgb 15.7 Hct 46.3 MCV 85.0 MCH 28.9 MCHC 34.0 RDW 12.3 Plt Count 363 Neut % (Auto) 65.7 Lymph % (Auto) 24.2 L [place] % (Auto) 7.3 Eos % (Auto) 1.7 L Baso % (Auto) 1.1 Neut # (Auto) 9300 H Lymph # (Auto) 3400 [place] # (Auto) 1000 H Eos # (Auto) 200 Baso # (Auto) 200 H Sodium 139 Potassium 3.7 Chloride 107 Carbon Dioxide 19 L BUN 10 Creatinine 0.42 L Estimated GFR > 60.0 BUN/Creatinine Ratio 23.8 H Glucose 196 H Lactate Calcium 9.6 Total Bilirubin 0.6 AST 22 ALT 21 Alkaline Phosphatase 135 H Total Protein 8.1 Albumin 4.2 Globulin 3.9 Albumin/Globulin Ratio 1.1 Lipase 41 Procalcitonin 0.07 SARS-CoV-2 (PCR) Negative 01/11/21 20:50 WBC RBC Hgb Hct MCV MCH MCHC RDW Plt Count Neut % (Auto) Lymph % (Auto) [place] % (Auto) Eos % (Auto) Baso % (Auto) Neut # (Auto) Lymph # (Auto) [place] # (Auto) Eos # (Auto) Baso # (Auto) Sodium Potassium Chloride Carbon Dioxide BUN Creatinine Estimated GFR BUN/Creatinine Ratio Glucose Lactate 1.0 Calcium Total Bilirubin AST ALT Alkaline Phosphatase Total Protein Albumin Globulin Albumin/Globulin Ratio Lipase Procalcitonin SARS-CoV-2 (PCR) Assessment & Plan Assessment & Plan narrative: Assessment: 1. Right scrotal abscess status post vasectomy. Plan: 1. Discussion, and informed consent today for right scrotal exploration/incision and drainage of scrotal abscess. Reviewed findings and discussed impression. Explained indications for urgent exploration and drainage of right scrotal abscess. Explained the common side effects, possible complications, perioperative limitations/restrictions, and reasonable expectations of outcomes and recovery. He is aware that he will likely have several days to weeks wound care. Consultation request for wound clinic will be made.
[2021-01-12] MEDS: KETOROLAC 30 MG/ML VIAL 15 MG IV (10:23)
[2021-01-12] MEDS: ONDANSETRON 4 MG/2 ML INJ IV ×2 (10:24→17:27)
[2021-01-12 10:34] LABS: Bacteria Urine None Seen; WBC Urine None Seen (0-5/HPF)
[2021-01-12 10:35] LABS: Appearance Urine UA CLEAR; Bilirubin Urine UA NEGATIVE (NEGATIVE); Color Urine UA YELLOW; Glucose Urine UA 1+ g/dL (Negative); Ketones Urine UA 3+ (NEGATIVE); Leukocyte Esterase Urine UA NEGATIVE (NEGATIVE); Nitrite Urine UA NEGATIVE (Negative); Occult Blood Urine UA 1+ (Negative); Protein Urine UA 1+ (Negative); Specific Gravity Urine UA 1.025 (1.000-1.035); Urobilinogen Urine UA 0.2 E.U./dL (0.2); pH Urine UA 5.5 (4.5-8.0)
[2021-01-12 10:42] LABS: Culture Indicated Urine Cult Not Indicated; RBC Urine 5-10/HPF (0-5/HPF)
--- NOTE | 2021-01-12 12:13 | PC.NURSE ---
SECURITY [employer] UTILITY OFFICER from OR here to pick pt up. Pt leaving with cell phone and clothing
[2021-01-12] MEDS: LACTATED RINGERS 1,000 ML 125 ML IV (12:34)
[2021-01-12] MEDS: LACTATED RINGERS 1,000 ML 42 ML IV (15:27)
--- NOTE | 2021-01-12 15:28 | SUR.HOLD ---
Have checked on patient multiple times throughout his pre-op stay. Patient was communicating with his via his cell phone. He was comfortable throughout OPD stay without need of medication.
[2021-01-12] MEDS: GENTAMICIN 240 MG in SODIUM CHLORIDE 0.9% 100 ML 106 ML IV (15:53)
--- NOTE | 2021-01-12 15:59 | SUR.OPER ---
Supine on padded OR bed, head on pillow, arms secured on padded arm boards at <90 degrees abduction, legs uncrossed, safety belt at thigh, tape over blanket over lower legs.
[2021-01-12] MEDS: BUPIVACAINE LIPOSOME 266 MG/20 ML VIAL INJ (16:05)
[2021-01-12] MEDS: AMPICILLIN/SULBACTAM 3 GM 3 GM in SODIUM CHLORIDE 0.9% 100 ML IV (16:06)
[2021-01-12] MEDS: SODIUM CHLORIDE 0.9% 1,000 ML, GENTAMICIN 80 MG IRR (16:08)
--- NOTE | 2021-01-12 16:16 | P.OP_ITS ---
Operative Date/Time/Diagnoses Date of procedure: 01/12/21 Time of procedure: 16:16 Pre-op diagnosis: Right scrotal abscess Procedure & Clinicians Procedure: 1. Right scrotal exploration. 2. Incision and drainage right scrotal abscess. Same procedure as scheduled: Yes Indications: Right scrotal abscess Surgeon: Doug Mann Click Yes if Unassisted: Yes Anesthesia Type: General and Local (1.33% Exparel) Operative Notes Findings: Abscess cavity was encountered just beneath the dartos fascia through the anterior superior right hemiscrotal wall. A copious quantity of yellow slightly green tinged and homogeneous poorly material was drained under some pressure. Closure Type: non-primary Specimen(s): other (Aerobic and anaerobic wound cultures sent from abscess fluid.) Applied: drain(s) (Iodoform wound [id number]) Estimated Blood Loss (mL): 0 Blood products transfused: none Tourniquet time (min): 0 Procedure in detail: Patient was positioned supine was administered general anesthesia. The lower abdomen, groin, and genitalia were then prepped and draped in sterile fashion. The needle-tip cautery pen was then used to make a 2-2.5 cm transverse incision over the anterior superior right hemiscrotum. Puru lent material as described above was encountered. A robotic and anaerobic intraoperative wound cultures obtained from the present material and submitted to the laboratory for routine Gram stain culture and sensitivity. The purulent material was then evacuated using suction. As solution of 80 mg of gentamicin and 500 cc normal saline was then used to gently irrigate the wound cavity. Local anesthetic was then used to infiltrate the skin and dartos fascia surrounding the incision. Wound was then gently packed with [id number]-rhli iodoform gauze. A 3 cm tag was left outside the wound cavity. Sterile 4 x 4 gauze were then applied to the site. Fluff gauze were then applied over the 4x4s. Finally, the patient was fitted with the athletic supporter. [facility] then [facility]. Complications: none Post-operative Condition: stable Disposition: PACU Plan for aftercare: Discharge home.
--- NOTE | 2021-01-12 16:30 | SUR.PHASEI ---
Arouses easily to voice, denies pain but says I can feel it down there. Denies nausea. Returns to sleep when not stimulated.
--- NOTE | 2021-01-12 16:40 | SUR.PHASEI ---
Report to Monty Dove RN
[2021-01-12] MEDS: OXYCODONE IR 5 MG TABLET PO (16:43)
[2021-01-12] MEDS: ACETAMINOPHEN 325 MG TABLET PO (16:44)
--- NOTE | 2021-01-12 18:24 | SUR.PHASEII ---
1745 assumed care from Joshua Morelos RN; Patient states that he's feeling much better and that the nausea has resolved. He prefers to rest longer prior to discharge.
--- NOTE | 2021-01-12 18:29 | SUR.PHASEII ---
Patient became nauseated in phase 2 and vomited 200cc emesis. Given zofran IV per orders and patient began feeling better.
--- NOTE | 2021-01-12 19:03 | SUR.PHASEII ---
1820 late entry - discharge instructions review with pt and by Joshua Morelos RN. They have no further questions upon discharge. Ice pack given for him to take home.
== END 2021-01-12 16:55 | disposition home or self-care (01) ==
LOC: ED 01-12 08:27 → AC 01-12 10:18
PROVIDERS: Emergency Medicine; Admitting Provider Specialist; Emergency Provider Emergency Medicine; PCP Family Medicine; Referring Provider Emergency Medicine; Visit Provider Specialist
PROC: (CPT 55100; principal; 2021-01-12 17:30)
DX: N49.2 Inflammatory disorders of scrotum (principal); T81.43XA Infection following a procedure, organ and space surgical site, initial encounter; Z98.52 Vasectomy status; Z20.822 Contact with and (suspected) exposure to COVID-19
CPT/HCPCS: 55100; 36415; 76870; 80053; 81001; 82962; 83605; 83690; 84145; 85025; 87040; 87070; 87075; 87077; 87186; 87205; 87635; 93005; 96361; 96365; 96375; 96376; 99284; C9803; G0378; C9290; J0295; J0696; J1170; J1885; J2405; J2704; J3010

== ENCOUNTER → 2021-01-14 13:02 | Outpatient (CLI) | payer OTHER, SELFPAY | PROVIDERS: PCP Family Medicine; Referring Provider Specialist; Visit Provider Family Medicine | DX: S31.30XA Unspecified open wound of scrotum and testes, initial encounter (principal); L08.9 Local infection of the skin and subcutaneous tissue, unspecified; R60.0 Localized edema; R81 Glycosuria; R82.4 Acetonuria; R00.0 Tachycardia, unspecified; F17.200 Nicotine dependence, unspecified, uncomplicated | CPT/HCPCS: 11042; 36415; 80048; 83036; 83735; 84443; 85025; 99205; 99213 ==

== ENCOUNTER → 2021-01-14 16:18 | Outpatient (CLI) | payer OTHER, SELFPAY ==
[2021-01-14 18:21] LABS: Add Manual Diff / Slide Review NO; Basophils Absolute Auto 300 /uL (0-100); Basophils Percent Auto 1.8 % (0-2); Eosinophils Absolute Auto 200 /uL (0-450); Eosinophils Percent Auto 1.7 % (2-4); Hematocrit 50.1 % (41-53); Hemoglobin 16.9 g/dL (13.5-17.5); Lymphocytes Absolute Auto 4100 /uL (1100-4500); Lymphocytes Percent Auto 27.6 % (25-40); Mean Corpuscular HGB Conc 33.8 % (30-36); Mean Corpuscular Volume 85.8 fL (80-100); Monocytes Absolute Auto 1300 /uL (0-900); Monocytes Percent Auto 8.5 % (3-14); Neutrophils Absolute Auto 8900 /uL (1500-7000); Neutrophils Percent Auto 60.4 % (50-75); Platelet Count 486 X10^3/uL (150-400); Red Blood Cell Count 5.85 X10^6/uL (4.5-5.9); Red Cell Distribution Width 12.5 % (11.6-14.8); White Blood Cell Count 14.7 X10^3/uL (4.5-11.0)
[2021-01-14 18:35] LABS: BUN Creatinine Ratio 19.2 (6-22); Blood Urea Nitrogen 14 mg/dL (9-20); Carbon Dioxide 17 mmol/L (22-32); Chloride 104 mmol/L (98-107); Estimated Glomerular Filt Rate > 60.0 mL/min (>60); Glucose 302 mg/dL (70-100); HEMOLYSIS < 15 (0-50); Magnesium 1.8 mg/dL (1.6-2.3); Potassium 3.7 mmol/L (3.4-5.1); Sodium 138 mmol/L (137-145)
[2021-01-14 19:07] LABS: Thyroid Stimulating Hormone 4.25 uIU/mL (0.47-4.68)
== END ==
PROVIDERS: PCP Family Medicine; Referring Provider Family Medicine; Visit Provider Family Medicine
DX: R82.4 Acetonuria (principal); R81 Glycosuria; S31.30XA Unspecified open wound of scrotum and testes, initial encounter; R00.0 Tachycardia, unspecified
CPT/HCPCS: 36415; 80048; 83036; 83735; 84443; 85025

== ENCOUNTER 2021-01-15 09:13 | Emergency (ER) | payer OTHER, SELFPAY ==
[2021-01-15 09:15] VITALS: BP 145/100; PULSE 136; RESP 18; TEMP 36.7; O2SAT 96; BMI 26.6
--- NOTE | 2021-01-15 09:18 | ED_ITS ---
HPI - Recheck/Abnormal Lab/Rx General Chief Complaint: Diabetic Problem Stated Complaint: lab results indicate diabetic issues Time Seen by Provider: 01/15/21 09:16 History of Present Illness HPI narrative: 40-year-old male smoker presents with his at the request of his Wound Care doctor to evaluate some abnormal labs. He recently had a vasectomy and subsequently developed an abscess that was taken to the OR last week. He was discharged and encouraged to follow up with wound care and labs have noted increasing blood glucose, dropping bicarb and has developed an anion gap. He was called at home and asked to come in for evaluation. Better and has very little in the way of testicular pain but is feeling just a bit fatigued. He denies any fever or chills. He has had no nausea or vomiting but has had increased hunger and thirst. Denies any chest pain or shortness of breath and states that his heart rate has been elevated throughout this entire process. Related Data Previous Rx's Medication Instructions Recorded ciprofloxacin HCl 500 mg tablet 500 mg PO Q12H #20 tab 01/12/21 oxycodone 5 mg tablet 5 mg PO Q4H PRN #20 tab 01/12/21 metformin 500 mg tablet 500 mg PO BID #60 tab 01/15/21 Allergies Allergy/AdvReac Type Severity Reaction Status Date / Time Sulfa (Sulfonamide Allergy Unknown Unknown - Verified 01/12/21 12:24 Antibiotics) was in [SULFA (SULFONAMIDE [place] ANTIBIOTICS)] Review of Systems Review of Systems Narrative: GENERAL: See HPI HEENT: Denies sinus pain, ear pain, sore throat, difficulty swallowing, dizziness. RESPIRATORY: Denies dyspnea, cough, wheezing, hemoptysis, sputum. CARDIOVASCULAR: Denies chest pain, palpitations, orthopnea, edema, GASTROINTESTINAL: Denies nausea, vomiting, abdominal pain, diarrhea, constipation, melena. : See HPI MUSCULOSKELETAL: denies weakness, joint pain, or bony pain SKIN: Denies rash, skin lesions, or other NEUROLOGIC: Denies weakness, headache, numbness, change in speech, confusion, s eizures, incoordination. PSYCHIATRIC: No concerning psychosocial issues. 12 point review of systems is negative except for those stated above Patient History Surgical History H/O foot surgery (~2015) H/O vasectomy Social History household members: spouse and children Smoking Status: Current some day smoker alcohol intake: current Smoking Status: Current some day smoker alcohol intake frequency: 0-2 drinks per day Substance Use Type: does not use Exam Narrative Exam Narrative: GENERAL: [39] year old patient appears stated age. Well- developed patient, in mild distress. HEAD: Atraumatic. Normocephalic. EYES: Pupils equal round and reactive. Extraocular motions intact. No scleral icterus. No injection or drainage. ENT: Nose without bleeding, purulent drainage. Throat without erythema, tonsillar hypertrophy or exudate. Airway patent. NECK: Trachea midline. Non tender CARDIOVASCULAR: Tachycardic but regular rhythm without murmurs, gallops, or rubs. RESPIRATORY: Clear to auscultation. Breath sounds equal bilaterally. No wheezes, rales, or rhonchi. GASTROINTESTINAL: Abdomen soft, non-tender, nondistended. EXTREMITIES: No edema or joint tenderness. BACK: Nontender without deformity or crepitance. No flank tenderness. NEURO: AOx3. SKIN: No rash or erythema of visible areas Initial Vital Signs Initial Vital Signs: Vital Signs Temperature 98.0 F 01/15/21 09:15 Pulse Rate 136 H 01/15/21 09:15 Respiratory Rate 18 01/15/21 09:15 Blood Pressure 145/100 H 01/15/21 09:15 Pulse Oximetry 96 01/15/21 09:15 Course Orders Ordered: ED Orders 01/15/21 09:17 EKG-12 Lead Stat 01/15/21 09:25 Complete Blood Count AUTO DIFF Stat Comprehensive Metabolic Panel Stat Ketones (Beta-Hydroxybutyrate) Stat Lactate (Lactic Acid) Stat Procalcitonin Stat 01/15/21 09:43 Venous Blood Gas Stat 01/15/21 09:56 Blood Culture Stat D Dimer Stat 01/15/21 10:49 CT angio chest PE protocol Stat Discontinued Medications Sodium Chloride (Normal Saline 0.9%) 1,000 mls @ 1,000 mls/hr IV BOLUS ONE Stop: 01/15/21 10:16 Last Infusion: 01/15/21 11:00 Dose: 0 mls/hr Documented by: Admin: 01/15/21 09:48 Dose: 1,000 mls/hr Documented by: AMY Vital Signs Vital signs: Vital Signs - 8 hr 01/15/21 12:30 Pulse Rate 105 H Respiratory Rate 13 Blood Pressure 130/99 H Pulse Oximetry 99 MDM - Recheck/Abnormal Lab/Rx Lab Data Result diagrams: 01/15/21 09:25 01/15/21 09:25 Labs: Lab Results 01/15/21 01/15/21 01/15/21 Range/Units 09:25 09:25 09:25 WBC 9.6 (4.5-11.0) X10^3/uL RBC 5.86 (4.5-5.9) X10^6/uL Hgb 17.2 (13.5-17.5) g/dL Hct 49.8 (41-53) % MCV 85.0 (80-100) fL MCH 29.3 (26-34) PG MCHC 34.5 (30-36) % RDW 12.7 (11.6-14.8) % Plt Count 460 H (150-400) X10^3/uL Neut % (Auto) 53.9 (50-75) % Lymph % (Auto) 34.1 (25-40) % [place] % (Auto) 8.7 (3-14) % Eos % (Auto) 2.0 (2-4) % Baso % (Auto) 1.3 (0-2) % Neut # (Auto) 5200 (2673-0694) /uL Lymph # (Auto) 3300 (7286-0934) /uL [place] # (Auto) 800 (0-900) /uL Eos # (Auto) 200 (0-450) /uL Baso # (Auto) 100 (0-100) /uL D-Dimer (<230) ng/mL VBG pH (7.33-7.43) VBG pCO2 (45-50) mmHg VBG pO2 (35-45) mmHg VBG HCO3 (23-28) mmol/L VBG Total CO2 (24-29) mmol/L VBG O2 Saturation (70-75) % VBG Base Excess (0-4) mmol/L Sodium 139 (137-145) mmol/L Potassium 3.9 (3.4-5.1) mmol/L Chloride 106 (98-107) mmol/L Carbon Dioxide 17 L (22-32) mmol/L BUN 13 (9-20) mg/dL Creatinine 0.47 L (0.66-1.25) mg/dL Estimated GFR > 60.0 (>60) mL/min BUN/Creatinine Ratio 27.7 H (6-22) Glucose 326 H (70-100) mg/dL Lactate 1.1 (0.7-2.1) mmol/L Calcium 10.3 H (8.4-10.2) mg/dL Total Bilirubin 0.6 (0.2-1.3) mg/dL AST 44 (17-59) IU/L ALT 49 (<50) IU/L Alkaline Phosphatase 130 H (38-126) U/L Total Protein 8.4 H (6.3-8.2) g/dL Albumin 4.4 (3.5-5.0) g/dL Globulin 4.0 (1.7-4.1) g/dL Albumin/Globulin Ratio 1.1 (1.0-2.8) Procalcitonin 0.08 (<0.5) ng/mL Ketones 2.93 H (<0.27) mmol/L 01/15/21 01/15/21 Range/Units 09:43 09:56 WBC (4.5-11.0) X10^3/uL RBC (4.5-5.9) X10^6/uL Hgb (13.5-17.5) g/dL Hct (41-53) % MCV (80-100) fL MCH (26-34) PG MCHC (30-36) % RDW (11.6-14.8) % Plt Count (150-400) X10^3/uL Neut % (Auto) (50-75) % Lymph % (Auto) (25-40) % [place] % (Auto) (3-14) % Eos % (Auto) (2-4) % Baso % (Auto) (0-2) % Neut # (Auto) (0366-9509) /uL Lymph # (Auto) (0928-7781) /uL [place] # (Auto) (0-900) /uL Eos # (Auto) (0-450) /uL Baso # (Auto) (0-100) /uL D-Dimer 358 H (<230) ng/mL VBG pH 7.39 (7.33-7.43) VBG pCO2 30.9 L (45-50) mmHg VBG pO2 77 H (35-45) mmHg VBG HCO3 19 L (23-28) mmol/L VBG Total CO2 20 L (24-29) mmol/L VBG O2 Saturation 95 H (70-75) % VBG Base Excess -6.0 L (0-4) mmol/L Sodium (137-145) mmol/L Potassium (3.4-5.1) mmol/L Chloride (98-107) mmol/L Carbon Dioxide (22-32) mmol/L BUN (9-20) mg/dL Creatinine (0.66-1.25) mg/dL Estimated GFR (>60) mL/min BUN/Creatinine Ratio (6-22) Glucose (70-100) mg/dL Lactate (0.7-2.1) mmol/L Calcium (8.4-10.2) mg/dL Total Bilirubin (0.2-1.3) mg/dL AST (17-59) IU/L ALT (<50) IU/L Alkaline Phosphatase (38-126) U/L Total Protein (6.3-8.2) g/dL Albumin (3.5-5.0) g/dL Globulin (1.7-4.1) g/dL Albumin/Globulin Ratio (1.0-2.8) Procalcitonin (<0.5) ng/mL Ketones (<0.27) mmol/L MDM Narrative Medical decision making narrative: Patient with slowly rising blood sugar and becoming slowly acidotic on serum. He does not have an established diagnosis of diabetes the he would seem that this could be a contributing factor chin reason he had a testicular abscess. He feels quite well, VBG notes a normal pH. I have discussed the case with the patient's primary care provider we sure the opinion that he is appropriate for discharge and can be placed on metformin 500 mg b.i.d. with close follow-up. Extensive return precautions given to the deepika ent and his and questions answered to their apparent satisfaction Discharge Plan Departure Patient Disposition: Home Clinical Impression: Acute hyperglycemia Instructions: DI for Diabetes Type 2 Activity Restrictions/Additional Instructions: *You have been diagnosed with [acute hyperglycemia] *What to do: *Please continue to take your regular medications as directed. [ x] New medication prescriptions sent to your pharmacy: [[facility] ] [ ] New medication written as a paper prescription [ ] No new medications given *Please follow up with your primary care provider in 2-3 days, call for an appointment. Let them know you were seen in the Emergency Department and that we ask that you be seen in follow up. We will electronically transmit a record of today's note if your PCP is in our system *If you do not have a primary care provider please contact the [facility] Resource line at [phone]. They will ask some questions about your medical history and help get you set up with a doctor in the community. *Return to Emergency Department if you should have any new, worsening or concerning symptoms, such as [fever greater than 101 F, shaking chills, worsening pain, persistent vomiting or other bothersome symptoms] Prescriptions: New metformin 500 mg tablet 500 mg PO BID Qty: 60 RF: 0 No Action oxycodone 5 mg tablet 5 mg PO Q4H PRN (Reason: pain) Qty: 20 RF: 0 ciprofloxacin HCl 500 mg tablet 500 mg PO Q12H Qty: 20 RF: 0 Referrals: Jeff Lutz MD [Primary Care Provider] -
[2021-01-15 09:19] VITALS: PULSE 128; O2SAT 97
[2021-01-15 09:30] VITALS: PULSE 123; RESP 16; O2SAT 96
--- NOTE | 2021-01-15 09:37 | PC.NURSE ---
Had vasectomy on December 19, developed abscess, came in Jan 11, went to OR for I&D. Came in today because labs were abnormal for elevated glucose. Reports family hx of DM2. Denies nausea/vomiting. C/o weakness and feeling tired. Denies pain.
[2021-01-15 09:40] LABS: Add Manual Diff / Slide Review NO; Basophils Absolute Auto 100 /uL (0-100); Basophils Percent Auto 1.3 % (0-2); Eosinophils Absolute Auto 200 /uL (0-450); Hematocrit 49.8 % (41-53); Hemoglobin 17.2 g/dL (13.5-17.5); Lymphocytes Absolute Auto 3300 /uL (1100-4500); Lymphocytes Percent Auto 34.1 % (25-40); Mean Corpuscular HGB Conc 34.5 % (30-36); Mean Corpuscular Hemoglobin 29.3 PG (26-34); Monocytes Absolute Auto 800 /uL (0-900); Monocytes Percent Auto 8.7 % (3-14); Neutrophils Absolute Auto 5200 /uL (1500-7000); Neutrophils Percent Auto 53.9 % (50-75); Platelet Count 460 X10^3/uL (150-400); Red Blood Cell Count 5.86 X10^6/uL (4.5-5.9); Red Cell Distribution Width 12.7 % (11.6-14.8); White Blood Cell Count 9.6 X10^3/uL (4.5-11.0)
[2021-01-15] MEDS: SODIUM CHLORIDE 0.9% 1,000 ML 1000 ML IV (09:48)
[2021-01-15 09:52] LABS: HCO3 VBG 19 mmol/L (23-28); Oxygen Saturation VBG 95 % (70-75); PCO2 VBG 30.9 mmHg (45-50); PO2 VBG 77 mmHg (35-45); Total CO2 VBG 20 mmol/L (24-29); pH VBG 7.39 (7.33-7.43)
[2021-01-15 09:52] LABS: Alanine Aminotransferase 49 IU/L (<50); Albumin 4.4 g/dL (3.5-5.0); Albumin Globulin Ratio 1.1 (1.0-2.8); Alkaline Phosphatase 130 U/L (38-126); Aspartate Aminotransferase 44 IU/L (17-59); BUN Creatinine Ratio 27.7 (6-22); Bilirubin Total 0.6 mg/dL (0.2-1.3); Blood Urea Nitrogen 13 mg/dL (9-20); Calcium 10.3 mg/dL (8.4-10.2); Carbon Dioxide 17 mmol/L (22-32); Chloride 106 mmol/L (98-107); Estimated Glomerular Filt Rate > 60.0 mL/min (>60); Glucose 326 mg/dL (70-100); Lactate (Lactic Acid) 1.1 mmol/L (0.7-2.1); Potassium 3.9 mmol/L (3.4-5.1); Sodium 139 mmol/L (137-145); Total Protein 8.4 g/dL (6.3-8.2)
[2021-01-15 10:00] VITALS: PULSE 121; RESP 16; O2SAT 95
[2021-01-15 10:05] LABS: HEMOLYSIS 32 (0-50); Ketones (Beta-Hydroxybutyrate) 2.93 mmol/L (<0.27)
[2021-01-15 10:08] LABS: Procalcitonin 0.08 ng/mL (<0.5)
[2021-01-15 10:13] LABS: D Dimer 358 ng/mL (<230)
--- NOTE | 2021-01-15 10:49 | DI.CT.S_ITS ---
PROCEDURE: CT ANGIO CHEST PE PROTOCOL INDICATIONS: tachycardia, elevated DDimer, recent surgery/admission TECHNIQUE: After the administration of intravenous contrast, 2 mm thick sections acquired from the pulmonary apices to the posterior costophrenic angles. 3-dimensional maximum intensity projection (MIP) coronal and sagittal reformats were then acquired through the thorax. For radiation dose reduction, the following was used: automated exposure control, adjustment of mA and/or kV according to patient size. COMPARISON: None. FINDINGS: Image quality: Excellent. Pulmonary arteries: Pulmonary arteries are normal in size, and demonstrate no intraluminal filling defects to suggest central pulmonary embolism. Lungs and pleura: Lungs are clear. No pleural effusions or pneumothorax. Central and peripheral airways are patent. Mediastinum: Heart size is normal, without pericardial effusion. No mediastinal or hilar adenopathy. Thoracic aorta is normal in caliber and enhancement. Esophagus is normal in caliber, without hiatal hernia. Bones and chest wall: No suspicious bony lesions. Ribs and thoracic spine appear intact throughout. Spine degenerative disc disease and facet arthropathy. Thyroid gland is normal where visualized. No axillary or supraclavicular adenopathy. Abdomen: Visualized upper abdominal solid organs appear normal in the early arterial phase of enhancement. IMPRESSION: 1. No pulmonary embolus. 2. No lung consolidation or pleural effusions. Dictated by: Nadia Al MD, PhD on 01/15/2021 at 11:16 Approved by: Nadia Al MD, PhD on 01/15/2021 at 11:23
[2021-01-15 12:30] VITALS: BP 130/99; PULSE 105; RESP 13; O2SAT 99
== END 2021-01-15 12:54 | disposition home or self-care (01) ==
PROVIDERS: Emergency Provider Emergency Medicine; PCP Family Medicine
DX: E11.65 Type 2 diabetes mellitus with hyperglycemia (principal); R53.83 Other fatigue; R00.0 Tachycardia, unspecified
CPT/HCPCS: 36415; 71275; 80053; 82009; 82805; 83605; 84145; 85025; 85379; 87040; 93005; 96360; 99284

== ENCOUNTER → 2021-01-21 11:45 | Outpatient (CLI) | payer OTHER, SELFPAY | PROVIDERS: PCP Family Medicine; Referring Provider Family Medicine; Visit Provider Family Medicine | DX: S31.30XA Unspecified open wound of scrotum and testes, initial encounter (principal); L08.9 Local infection of the skin and subcutaneous tissue, unspecified; L23.1 Allergic contact dermatitis due to adhesives; E11.65 Type 2 diabetes mellitus with hyperglycemia | CPT/HCPCS: 99213; 99214 ==

== ENCOUNTER → 2021-01-28 09:55 | Outpatient (CLI) | payer OTHER, SELFPAY | PROVIDERS: PCP Family Medicine; Referring Provider Family Medicine; Visit Provider Family Medicine | DX: S31.30XA Unspecified open wound of scrotum and testes, initial encounter (principal); L23.1 Allergic contact dermatitis due to adhesives; E11.65 Type 2 diabetes mellitus with hyperglycemia | CPT/HCPCS: 99212; 99213 ==

== ENCOUNTER → 2021-02-05 09:10 | Outpatient (CLI) | payer OTHER, SELFPAY | PROVIDERS: PCP Family Medicine; Referring Provider Family Medicine; Visit Provider Family Medicine | DX: S31.30XA Unspecified open wound of scrotum and testes, initial encounter (principal); T81.42XS Infection following a procedure, deep incisional surgical site, sequela; E11.628 Type 2 diabetes mellitus with other skin complications | CPT/HCPCS: 99212; 99213 ==

== ENCOUNTER → 2021-02-12 10:01 | Outpatient (CLI) | payer OTHER, SELFPAY | PROVIDERS: PCP Family Medicine; Referring Provider Family Medicine; Visit Provider Family Medicine | DX: E11.9 Type 2 diabetes mellitus without complications (principal); T81.89XD Other complications of procedures, not elsewhere classified, subsequent encounter; S31.30XD Unspecified open wound of scrotum and testes, subsequent encounter | CPT/HCPCS: 99212; 99213 ==

== ENCOUNTER → 2021-06-11 13:46 | Outpatient (CLI) | payer OTHER, SELFPAY ==
[2021-06-11 14:34] LABS: Hemoglobin A1C% w Est Avg Glu 9.1 % (4.0-6.0)
== END ==
PROVIDERS: PCP Family Medicine; Referring Provider Family Medicine; Visit Provider Family Medicine
DX: E11.9 Type 2 diabetes mellitus without complications (principal)
CPT/HCPCS: 36415; 83036

== ENCOUNTER → 2022-01-13 09:52 | Outpatient (ROUT) | payer OTHER, SELFPAY ==
[2022-01-13 10:37] LABS: Influenza A - CEPHEID Flu A NEGATIVE (NEGATIVE); Influenza B - CEPHEID Flu B NEGATIVE (NEGATIVE)
[2022-01-13 11:17] LABS: COVID-19 CEPHEID PCR (VTM/NP) Negative (Negative)
== END ==
PROVIDERS: PCP Family Medicine; Visit Provider Internal Medicine
DX: J02.9 Acute pharyngitis, unspecified (principal)
CPT/HCPCS: 0240U

== ENCOUNTER → 2023-04-01 10:24 | Outpatient (CLI) | payer OTHER, SELFPAY ==
--- NOTE | 2023-04-01 | DI.RAD.S_ITS ---
PROCEDURE: XR CHEST 2V INDICATIONS: RIB PAIN TECHNIQUE: 2 views of the chest were acquired. COMPARISON: [facility], CR, XR CHEST 2V, 04/13/2018, 16:35. FINDINGS: Surgical changes and devices: None. Lungs and pleura: Lungs are clear. No pleural effusions or pneumothorax. Mediastinum: Mediastinal contours are normal. Heart size is normal. Bones and chest wall: No suspicious bony abnormalities. Soft tissues appear unremarkable. IMPRESSION: No evidence acute pulmonary process. Dictated by: Robbin Lin M.D. on 04/01/2023 at 11:34 Approved by: Robbin Lin M.D. on 04/01/2023 at 11:35
== END ==
PROVIDERS: PCP Family Medicine; Referring Provider Registered Nurse; Visit Provider Registered Nurse
DX: R07.81 Pleurodynia (principal)
CPT/HCPCS: 71046

== ENCOUNTER → 2024-05-12 12:29 | Outpatient (CLI) | payer OTHER, SELFPAY ==
[2024-05-12 12:59] LABS: Hemoglobin A1C% w Est Avg Glu 6.6 % (4.0-6.0)
== END ==
PROVIDERS: PCP Family Medicine; Referring Provider Family Medicine; Visit Provider Family Medicine
DX: E11.9 Type 2 diabetes mellitus without complications (principal)
CPT/HCPCS: 36415; 83036